=== PATIENT | female | born 1950 | race Caucasian/White ===

== ENCOUNTER 2017-03-13 16:25 | Emergency (ER) | payer OTHER, BC ==
[~2017-03-13] VITALS: Ht 167.6 cm; Wt 52.5 kg
[~2017-03-13 16:25] MED LIST: ALTACE1.25 MG PO; CIPRO500 MG PO; DuoNeb IH; ECOTRIN325 MG PO; FLAGYL500 MG PO; LIPITOR20 MG PO; LIPITOR80 MG PO; NITROSTAT0.4 MG SL; NORCO 5/3251 TABLET PO; TOPROL XL50 MG PO; XANAX0.25 MG PO; Xanax PO; ZOFRAN ODT4 MG PO; Zithromax PO; predniSONE PO
[2017-03-13 16:49] LABS: HEMATOCRIT 42.9 % (36.0-46.0); MCH 30.4 PG (29.0-34.0); MCHC 33.6 G/DL (30.0-36.0); MCV 90.7 FL (83-99); MEAN PLAT.VOLUME 9.9 uM^3 (9.5-12.4); PLATELET COUNT 192 K/uL (156-360); RBC DIS.WIDTH-CV 12.4 % (11.8-14.6); RBC DIS.WIDTH-SD 40.9 % (39-53); RED BLOOD COUNT 4.73 M/uL (3.80-5.20); WHITE BLOOD COUNT 11.4 K/uL (4.1-10.2)
[2017-03-13 17:03] LABS: CHLORIDE 104 mEq/L (99-109); POTASSIUM 3.3 mEq/L (3.7-5.4); SODIUM 140 mEq/L (136-147)
[2017-03-13 17:05] LABS: GLUCOSE 119 mg/dL (70-99)
[2017-03-13 17:06] LABS: ANION GAP 11 MEQ/L (2-14)
[2017-03-13 17:08] LABS: ALKALINE PHOSPHATASE 104 IU/L (3-129)
[2017-03-13 17:09] LABS: GFR ESTIMATE (CALCULATED) > 59 mL/min/
[2017-03-13 17:10] LABS: UREA NITROGEN (BUN) 11 mg/dL (9-23)
[2017-03-13 18:20] LABS: LIPASE 63 U/L (1.0-51.0)
[2017-03-13 18:29] LABS: ADD MIUA? YES; BILIRUBIN NEGATIVE; BLOOD MODERATE; COLOR YELLOW ((YELLOW)); GLUCOSE (STRIP) NEGATIVE; KETONES NEGATIVE; LEUKOCYTES NEGATIVE; NITRITE NEGATIVE; PROTEIN (STRIP) NEGATIVE; SPECIFIC GRAVITY 1.009 (1.000-1.030); UROBILINOGEN 0.2 MG/DL (0.2-1.0)
[2017-03-13 18:35] LABS: BACTERIA RARE /HPF; EPITHELIAL CELLS RARE /HPF; HYALINE CASTS 0-5 /LPF; MUCUS TRACE /LPF; RED BLOOD CELLS 0-5 /HPF (0-5); UCUL ADDED? NO; UNCLASSIFIED CASTS 0-5 /LPF; WHITE BLOOD CELLS 0-5 /HPF (0-5)
[2017-03-13] MEDS ORDERED: MIRALAX255 GM PO (21:36)
[2017-03-13] MEDS ORDERED: MOTRIN600 MG PO (22:02)
[2017-03-13] MEDS ORDERED: ULTRACET1 TABLET PO (22:02)
[2017-03-13] MEDS ORDERED: LIDODERM 5% P1 PATCH TD (22:05)
[2017-03-13 22:18] VITALS: BP 151/80
== END 2017-03-13 22:20 | disposition home or self-care (01) ==
LOC: EME 16:25
DX: R10.84 Generalized abdominal pain (principal); R10.9 Unspecified abdominal pain; M54.16 Radiculopathy, lumbar region; R03.0 Elevated blood-pressure reading, without diagnosis of hypertension; K59.00 Constipation, unspecified; I25.2 Old myocardial infarction; J45.909 Unspecified asthma, uncomplicated; Z95.5 Presence of coronary angioplasty implant and graft; F17.200 Nicotine dependence, unspecified, uncomplicated; Z79.82 Long term (current) use of aspirin
CPT/HCPCS: 74177; 80053; 81003; 83690; 85027; 99281; 99285; J1885; J3010; J7030